=== PATIENT | female | born 1980 | race Caucasian/White ===

== ENCOUNTER 2017-11-20 16:30 | Emergency (ER) | payer OTHER ==
[~2017-11-20] VITALS: Ht 172.7 cm; Wt 72.0 kg
[2017-11-20 16:50] VITALS: BP 140/89
[2017-11-20] MEDS ORDERED: ERYT1OIN6 EACHEYE (17:36)
== END 2017-11-20 17:44 | disposition home or self-care (01) ==
LOC: ER 16:31
DX: H10.89 Other conjunctivitis (principal)
CPT/HCPCS: 99283

== ENCOUNTER 2018-01-19 12:07 | Outpatient (CLI) | payer OTHER | END 2018-01-19 23:59 | disposition home or self-care (01) | LOC: LAB 12:07 | PROVIDERS: ATTEND Obstetrics & Gynecology | DX: N91.4 Secondary oligomenorrhea (principal) | CPT/HCPCS: 36415; 84144 ==

== ENCOUNTER 2018-02-20 17:54 | Outpatient (CLI) | payer OTHER | END 2018-02-20 23:59 | disposition home or self-care (01) | LOC: LAB 17:54 | PROVIDERS: ATTEND Obstetrics & Gynecology | DX: N91.4 Secondary oligomenorrhea (principal) | CPT/HCPCS: 36415; 84144 ==

== ENCOUNTER 2018-03-21 08:01 | Outpatient (CLI) | payer OTHER | END 2018-03-21 23:59 | disposition home or self-care (01) | LOC: LAB 08:01 | PROVIDERS: ATTEND Obstetrics & Gynecology | DX: N91.4 Secondary oligomenorrhea (principal) | CPT/HCPCS: 36415; 84144 ==

== ENCOUNTER 2018-04-20 12:43 | Outpatient (CLI) | payer OTHER | END 2018-04-20 23:59 | disposition home or self-care (01) | LOC: LAB 12:43 | PROVIDERS: ATTEND Obstetrics & Gynecology | DX: N91.4 Secondary oligomenorrhea (principal) | CPT/HCPCS: 36415; 84144 ==

== ENCOUNTER 2018-06-15 14:53 | Outpatient (CLI) | payer OTHER | END 2018-06-15 23:59 | disposition home or self-care (01) | LOC: LAB 14:53 | PROVIDERS: ATTEND Obstetrics & Gynecology | DX: N91.4 Secondary oligomenorrhea (principal); N96 Recurrent pregnancy loss | CPT/HCPCS: 36415; 84144 ==

== ENCOUNTER → 2018-08-15 | Outpatient (CLI) | payer OTHER | END | disposition home or self-care (01) | LOC: LAB 10:04 | PROVIDERS: ATTEND Obstetrics & Gynecology | DX: N91.4 Secondary oligomenorrhea (principal); N96 Recurrent pregnancy loss | CPT/HCPCS: 36415; 84144 ==

== ENCOUNTER 2018-09-30 13:50 | Outpatient (CLI) | payer OTHER | END 2018-09-30 23:59 | disposition home or self-care (01) | LOC: CARD DIAG 13:50 | PROVIDERS: ATTEND Internal Medicine Interventional Cardiology | DX: I07.1 Rheumatic tricuspid insufficiency (principal); I48.91 Unspecified atrial fibrillation | CPT/HCPCS: 93306 ==

== ENCOUNTER 2019-04-27 10:28 | Outpatient (CLI) | payer OTHER ==
[2019-04-27 11:18] LABS: BASOPHILS % (AUTO) 0.5 % (0-1); EOSINOPHILS % (AUTO) 0.6 % (0-6); HEMATOCRIT 38.7 % (35.0-45.0); HEMOGLOBIN 13.3 g/dl (12.0-16.0); LYMPHOCYTES # (AUTO) 1.9 X10'3 (1.1-4.8); LYMPHOCYTES % (AUTO) 28.1 % (21-51); MEAN CORPUSCULAR HEMOGLOBIN 29.9 PG (27.0-31.0); MEAN CORPUSCULAR HGB CONC 34.4 g/dL (33.0-36.5); MEAN PLATELET VOLUME 8.6 FL (7.4-10.4); MONOCYTES # (AUTO) 0.6 X10'3 (0-0.9); MONOCYTES % (AUTO) 9.4 % (2-12); NEUTROPHILS # (AUTO) 4.2 X10'3 (1.8-7.7); NEUTROPHILS % (AUTO) 61.4 % (42-75); PLATELET COUNT 296 X10'3 (140-440); RED BLOOD COUNT 4.45 X10'6 (4.20-5.60); RED CELL DISTRIBUTION WIDTH 13.9 % (11.5-14.5); WHITE BLOOD COUNT 6.9 X10'3 (4.5-11.0)
[2019-04-27 11:31] LABS: HEMOGLOBIN A1C 5.2 % (4.5-6.2)
[2019-04-27 11:35] LABS: ALANINE AMINOTRANSFERASE 20 U/L (12-78); ALBUMIN 3.9 G/DL (3.4-5.0); ALBUMIN/GLOBULIN RATIO 1.1 (1.1-1.5); ALKALINE PHOSPHATASE 57 IU/L (46-116); ANION GAP 8 (8-16); ASPARTATE AMINO TRANSFERASE 16 U/L (10-37); BILIRUBIN,TOTAL 0.3 MG/DL (0.1-1.0); BLOOD UREA NITROGEN 10 MG/DL (7-18); BUN/CREATININE RATIO 13.3 (6.6-38.0); CALCIUM 8.9 MG/DL (8.5-10.1); CHLORIDE 105 MMOL/L (99-107); CHOL/HDL RATIO 2.6 (0.00-4.99); CHOLESTEROL 157 MG/DL (0-200); CREATININE 0.75 MG/DL (0.40-0.90); GLUCOSE 83 MG/DL (70-104); HDL CHOLESTEROL 61 MG/DL (35-60); LDL CHOLESTEROL 83 MG/DL (50-100); POTASSIUM 3.9 MMOL/L (3.5-5.1); SODIUM 138 MMOL/L (135-145); TOTAL CARBON DIOXIDE 25.4 MMOL/L (24-32); TOTAL PROTEIN 7.5 G/DL (6.4-8.2); TRIGLYCERIDES 74 MG/DL (20-135); eGFR 87 ML/MIN
== END 2019-04-27 23:59 | disposition home or self-care (01) ==
LOC: LAB 10:28
DX: Z01.89 Encounter for other specified special examinations (principal); R53.83 Other fatigue; Z79.899 Other long term (current) drug therapy
CPT/HCPCS: 36415; 80053; 80061; 82652; 83036; 84439; 84443; 85025

== ENCOUNTER 2019-04-27 10:33 | Outpatient (CLI) | payer OTHER ==
[2019-04-27 12:51] LABS: RHEUM FACTOR QUAL REFLEX TITER NEGATIVE (Neg)
== END 2019-04-27 23:59 | disposition home or self-care (01) ==
LOC: LAB 10:33
DX: M25.50 Pain in unspecified joint (principal); R53.83 Other fatigue
CPT/HCPCS: 36415; 85651; 86038; 86430

== ENCOUNTER 2020-01-30 07:35 | Emergency (ER) | payer OTHER ==
[~2020-01-30] VITALS: Ht 170.2 cm; Wt 79.5 kg
[2020-01-30 07:36] VITALS: BP 171/104
[2020-01-30 08:36] LABS: BASOPHILS % (AUTO) 0.4 % (0-1); EOSINOPHILS % (AUTO) 0.1 % (0-6); HEMATOCRIT 37.4 % (35.0-45.0); HEMOGLOBIN 12.6 g/dl (12.0-16.0); LYMPHOCYTES # (AUTO) 0.9 X10'3 (1.1-4.8); LYMPHOCYTES % (AUTO) 12.6 % (21-51); MEAN CORPUSCULAR HEMOGLOBIN 28.3 PG (27.0-31.0); MEAN CORPUSCULAR HGB CONC 33.6 g/dL (33.0-36.5); MEAN CORPUSCULAR VOLUME 84.2 FL (78-98); MONOCYTES # (AUTO) 0.6 X10'3 (0-0.9); MONOCYTES % (AUTO) 8.5 % (2-12); NEUTROPHILS # (AUTO) 5.4 X10'3 (1.8-7.7); NEUTROPHILS % (AUTO) 78.4 % (42-75); PLATELET COUNT 308 X10'3 (140-440); RED BLOOD COUNT 4.44 X10'6 (4.20-5.60); RED CELL DISTRIBUTION WIDTH 15.1 % (11.5-14.5); WHITE BLOOD COUNT 6.9 X10'3 (4.5-11.0)
[2020-01-30 08:50] LABS: ALANINE AMINOTRANSFERASE 19 U/L (12-78); ALBUMIN 3.7 G/DL (3.4-5.0); ALBUMIN/GLOBULIN RATIO 1.1 (1.1-1.5); ALKALINE PHOSPHATASE 57 IU/L (46-116); ANION GAP 9 (8-16); ASPARTATE AMINO TRANSFERASE 18 U/L (10-37); BILIRUBIN,TOTAL 0.1 MG/DL (0.1-1.0); BLOOD UREA NITROGEN 8 MG/DL (7-18); CALCIUM 8.2 MG/DL (8.5-10.1); CHLORIDE 111 MMOL/L (99-107); CREATININE 0.73 MG/DL (0.40-0.90); GLUCOSE 102 MG/DL (70-104); POTASSIUM 3.7 MMOL/L (3.5-5.1); SODIUM 144 MMOL/L (135-145); TOTAL CARBON DIOXIDE 24.5 MMOL/L (24-32); eGFR 89 ML/MIN
[2020-01-30 08:59] LABS: MAGNESIUM 1.9 MG/DL (1.5-2.4)
== END 2020-01-30 09:11 | disposition home or self-care (01) ==
LOC: ER 07:35
DX: F41.0 Panic disorder [episodic paroxysmal anxiety] (principal); F41.9 Anxiety disorder, unspecified
CPT/HCPCS: 36415; 71045; 80053; 83735; 83880; 84484; 85025; 93005; 99285

== ENCOUNTER 2023-04-30 07:41 | Outpatient (CLI) | payer BC ==
[2023-04-30 09:39] LABS: BASOPHILS % (AUTO) 0.4 % (0-1); EOSINOPHILS # (AUTO) 0.1 X10'3 (0-0.9); EOSINOPHILS % (AUTO) 0.9 % (0-6); HEMATOCRIT 38.8 % (35.0-45.0); HEMOGLOBIN 12.4 g/dl (12.0-16.0); LYMPHOCYTES # (AUTO) 2.3 X10'3 (1.1-4.8); MEAN CORPUSCULAR HEMOGLOBIN 26.8 PG (27.0-31.0); MEAN CORPUSCULAR VOLUME 83.7 FL (78-98); MEAN PLATELET VOLUME 8.5 FL (7.4-10.4); MONOCYTES # (AUTO) 0.8 X10'3 (0-0.9); MONOCYTES % (AUTO) 10.3 % (2-12); NEUTROPHILS # (AUTO) 4.9 X10'3 (1.8-7.7); NEUTROPHILS % (AUTO) 60.4 % (42-75); PLATELET COUNT 338 X10'3 (140-440); RED BLOOD COUNT 4.64 X10'6 (4.20-5.60); RED CELL DISTRIBUTION WIDTH 17.3 % (11.5-14.5); WHITE BLOOD COUNT 8.2 X10'3 (4.5-11.0)
[2023-04-30 09:45] LABS: HEMOGLOBIN A1C 5.4 % (4.5-6.2)
[2023-04-30 10:09] LABS: ALANINE AMINOTRANSFERASE 19 U/L (12-78); ALBUMIN 3.7 G/DL (3.4-5.0); ALBUMIN/GLOBULIN RATIO 1.1 (1.1-1.5); ALKALINE PHOSPHATASE 57 IU/L (46-116); ANION GAP 7 (8-16); ASPARTATE AMINO TRANSFERASE 19 U/L (10-37); BILIRUBIN,TOTAL 0.3 MG/DL (0.1-1.0); BLOOD UREA NITROGEN 12 MG/DL (7-18); BUN/CREATININE RATIO 17.9 (10.0-20.0); CALCIUM 8.6 MG/DL (8.5-10.1); CHLORIDE 104 MMOL/L (99-107); CHOL/HDL RATIO 2.7 (0.00-4.99); CHOLESTEROL 184 MG/DL (0-200); CREATININE 0.67 MG/DL (0.40-0.90); GLUCOSE 85 MG/DL (70-104); HDL CHOLESTEROL 67 MG/DL (35-60); LDL CHOLESTEROL 97 MG/DL (50-100); MAGNESIUM 2.2 MG/DL (1.5-2.4); POTASSIUM 3.7 MMOL/L (3.5-5.1); SODIUM 137 MMOL/L (135-145); TOTAL CARBON DIOXIDE 25.7 MMOL/L (24-32); TOTAL PROTEIN 7.1 G/DL (6.4-8.2); TRIGLYCERIDES 102 MG/DL (20-135); eGFR > 90 ML/MIN
== END 2023-04-30 23:59 | disposition home or self-care (01) ==
LOC: LAB 07:41
PROVIDERS: ATTEND Physician Assistant Surgical
DX: Z00.00 Encounter for general adult medical examination without abnormal findings (principal); Z13.220 Encounter for screening for lipoid disorders; R68.89 Other general symptoms and signs; E55.9 Vitamin D deficiency, unspecified; R94.6 Abnormal results of thyroid function studies; R73.9 Hyperglycemia, unspecified
CPT/HCPCS: 36415; 80053; 80061; 82306; 83036; 83735; 84443; 85025